=== PATIENT | female | born 1985 | race Caucasian/White ===

== ENCOUNTER 2016-12-02 20:10 | Emergency (ER) | payer OTHER ==
[~2016-12-02] VITALS: Ht 167.6 cm; Wt 83.0 kg
[2016-12-02 20:16] VITALS: Ht 167.6 cm; Wt 83.0 kg
[2016-12-02 21:25] LABS: ADD SCAN DIFF NO
[2016-12-02 21:26] LABS: BASOPHILS % 0.4 % (0.0-2.0); EOSINOPHILS # 0.2 10^3/ul (0.0-0.5); EOSINOPHILS % 1.6 % (0.0-7.0); HEMATOCRIT 38.8 % (37.0-47.0); LYMPHOCYTES # 2.4 10^3/ul (0.8-2.9); LYMPHOCYTES % 21.7 % (15.0-51.0); MEAN CORPUSCULAR HEMOGLOBIN 28.9 pg (29.0-33.0); MEAN CORPUSCULAR HGB CONC 33.5 g/dl (32.0-37.0); MEAN CORPUSCULAR VOLUME 86.2 fl (82.0-101.0); MEAN PLATELET VOLUME 10.3 fl (7.4-10.4); MONOCYTE # 0.8 10^3/ul (0.3-0.9); MONOCYTES % 6.9 % (0.0-11.0); NEUTROPHIL # 7.6 10^3/ul (1.6-7.5); PLATELET COUNT 255 10^3/UL (140-415); RED CELL DISTRIBUTION WIDTH 12.7 % (11.5-14.5); WHITE BLOOD COUNT 10.9 10^3/ul (4.8-10.8)
[2016-12-02 21:35] LABS: ALBUMIN 4.5 g/dl (3.3-4.9)
[2016-12-02 21:35] LABS: URINE COLOR YELLOW (YELLOW)
[2016-12-02 21:36] LABS: POTASSIUM 3.5 mmol/L (3.5-5.1)
[2016-12-02 21:36] LABS: ADD UMIC YES; URINE BILIRUBIN (Dip) NEGATIVE (NEGATIVE); URINE BLOOD (Dip) TRACE (NEGATIVE); URINE GLUCOSE (Dip) NEGATIVE (NEGATIVE); URINE KETONES (Dip) NEGATIVE (NEGATIVE); URINE LEUKOCYTE ESTERASE (Dip) TRACE (NEGATIVE); URINE NITRITE (Dip) NEGATIVE (NEGATIVE); URINE TOTAL PROTEIN (Dip) NEGATIVE (NEGATIVE); URINE UROBILINOGEN (Dip) 0.2 E.U./dL (0.1-1.0)
[2016-12-02 21:38] LABS: BILIRUBIN,INDIRECT 0.2 mg/dl (0-1.1); BILIRUBIN,TOTAL 0.2 mg/dl (0.2-1.3); CREATININE 0.58 mg/dl (0.44-1.00)
[2016-12-02 21:39] LABS: ALBUMIN/GLOBULIN RATIO 1.28; CALCIUM 9.6 mg/dl (8.4-10.2)
[2016-12-02 21:44] LABS: BACTERIA,URINE MODERATE; SQUAMOUS EPITHELIAL CELL,UR FEW; URINE RBCS 0-2 /HPF (0)
--- NOTE | 2016-12-02 22:01 | RADRPT ---
PROCEDURE: US OB. CLINICAL INDICATION: Pelvic pain TECHNIQUE: Transabdominal views of the pelvis are available for review. COMPARISON: No prior studies are available for comparison. FINDINGS: There is a single intrauterine gestation with the crown-rump length measuring 6.7 cm, corresponding to a gestational age of 13 weeks and 0 days. The heart rate is noted at 154 bpm. The ovaries are not visualized. There is no free fluid. RPTAT: AA IMPRESSION: Single live intrauterine with an estimated gestational age of 13 weeks and 0 days, based o n ultrasound measurements. MAME based on ultrasound measurements is 06/09/2017. .Rupert Plata MD, MD Date Time Electronically viewed and signed by .Rupert Plata MD, on 12/02/2016 22:01 .S/
[2016-12-02] MEDS ORDERED: TYL500 PO (22:13)
[2016-12-02] MEDS ORDERED: NITR-58 PO (22:13)
--- NOTE | 2016-12-02 22:21 | ERD ---
ER Documentation Chief Complaint Date/Time DATE: 12/02/16 TIME: 22:17 Chief Complaint lower back pain x 1day, denies vb. states 14 weeks HPI This is a 31-year-old female presents to the ER with right-sided lower back pain that started yesterday. Patient states that her urine is more yellow and she does admit to urinary frequency and dysuria. Patient is currently 14 weeks A0. Patient denies any vaginal bleeding. She denies any pelvic pain or cramping. She denies any vaginal discharge. Patient denies any fevers or chills. She denies any nausea vomiting or diarrhea. Patient denies any trauma. She denies any urine or bowel incontinence, she denies any saddlelike anesthesia. ROS 12 point review of systems was done, all negative except per HPI. Medications Home Meds Active Scripts Acetaminophen* (Tylenol*) 500 Mg Tab, 1000 MG PO Q4H Y for PAIN AND OR ELEVATED TEMP for 3 Days, TAB Prov:LOREN GUILLORY 12/02/16 Nitrofurantoin Monohyd Macrocr* (Macrobid*) 100 Mg Capsr, 100 MG PO BID for 7 Days, CAP Prov:PASTORA,LOREN C 12/02/16 Allergies Allergies: Coded Allergies: No Known Drug Allergies (Verified Allergy, Unknown, 12/02/16) PMhx/Soc Medical and Surgical Hx: pt denies Medical Hx, pt denies Surgical Hx History of Surgery: No Anesthesia Reaction: No Hx Neurological Disorder: No Hx Respiratory Disorders: No Hx Cardiac Disorders: No Hx Psychiatric Problems: No Hx Miscellaneous Medical Probl: No Hx Alcohol Use: No Hx Substance Use: No Hx Tobacco Use: No Smoking Status: Never smoker Physical Exam Vitals Vital Signs Date Time Temp Pulse Resp B/P Pulse Ox O2 Delivery O2 Flow Rate FiO2 12/02/16 20:16 98.6 88 20 132/66 99 Physical Exam GENERAL: The patient is well developed and appropriate for usual state of health , in no apparent distress. HEENT: Atraumatic. CHEST: Clear to auscultation bilaterally. There are no rales, wheezes or rhonchi. HEART: Regular rate and rhythm. No murmurs, clicks, rubs or gallops. ABDOMEN: Soft, nontender and nondistended. Good bowel sounds. No rebound or guarding. No gross peritonitis. No gross organomegaly or masses. No Tao sign or McBurney point tenderness. BACK: No CVA tenderness.. NEURO: Alert and oriented. SKIN:The skin is warm and dry. Result Diagram: 12/02/16211412/02/162114 Results 24 hrs Laboratory Tests Test 12/02/16 21:14 12/02/16 21:15 Urine Color YELLOW Urine Clarity CLEAR Urine pH 6.0 Urine Specific [place] 1.020 Urine Ketones NEGATIVE Urine Nitrite NEGATIVE Urine Bilirubin NEGATIVE Urine Urobilinogen 0.2 E.U./dL Urine Leukocyte Esterase TRACE Urine Microscopic RBC 0-2/HPF Urine Microscopic WBC 0-2/HPF Urine Squamous Epithelial Cells FEW Urine Bacteria MODERATE Urine Hemoglobin TRACE Urine Glucose NEGATIVE% Urine Total Protein NEGATIVE White Blood Count 10.910^3/ul Red Blood Count 4.5010^6/ul Hemoglobin 13.0g/dl Hematocrit 38.8% Mean Corpuscular Volume 86.2fl Mean Corpuscular Hemoglobin 28.9pg Mean Corpuscular Hemoglobin Concent 33.5g/dl Red Cell Distribution Width 12.7% Platelet Count 66626^3/UL Mean Platelet Volume 10.3fl Neutrophils % 69.0% Lymphocytes % 21.7% Monocytes % 6.9% Eosinophils % 1.6% Basophils % 0.4% Nucleated Red Blood Cells % 0.0/100WBC Neutrophils # 7.610^3/ul Lymphocytes # 2.410^3/ul Monocytes # 0.810^3/ul Eosinophils # 0.210^3/ul Basophils # 0.010^3/ul Nucleated Red Blood Cells # 0.010^3/ul Sodium Level 137mmol/L Potassium Level 3.5mmol/L Chloride Level 101mmol/L Carbon Dioxide Level 26mmol/L Anion Gap 14 Blood Urea Nitrogen 8mg/dl Creatinine 0.58mg/dl Glucose Level 80mg/dl Calcium Level 9.6mg/dl Total Bilirubin 0.2mg/dl Direct Bilirubin 0.00mg/dl Indirect Bilirubin 0.2mg/dl Aspartate Amino Transf (AST/SGOT) 27IU/L Alanine Aminotransferase (ALT/SGPT) 35IU/L Alkaline Phosphatase 95IU/L Total Protein 8.0g/dl Albumin 4.5g/dl Globulin 3.50g/dl Albumin/Globulin Ratio 1.28 Procedures/MDM This is a 31-year-old female presents to the ER with right-sided lower back pain. At this time I do not believe the patient has pyelonephritis as she is afebrile extremely well-appearing and does not have any CVA tenderness. Patient only had trace leukocytes on urinalysis. Because patient is symptomatic she will be treated with Macrobid. Patient has denied any urinary bowel incontinence and any saddle like anesthesia. She is also denied any trauma. Patient denied any vaginal bleeding or any other related symptoms, ultrasound of the baby is normal. Patient is to follow-up with her primary care doctor within 1-2 days return to ER sooner if symptoms worsen. My medical decision making was shared with the patient she understands and agrees with plan. Departure Diagnosis: Primary Impression: UTI (urinary tract infection) Condition: Stable Patient Instructions: Understanding Urinary Tract Infections (UTIs) Additional Instructions: Llame al doctor MAANA y sadiq yariel BARNEY PARA DENTRO DE 1-2 HERNANDEZ.Dgale a la secretaria que nosotros le instruimos hacer esta barney.Avise o llame si nevarez condicin se empeora antes de la barney. Regresa aqui si peor o no mejor. LOREN GUILLORY Dec 02, 2016 22:21
[2016-12-02 22:22] VITALS: BP 124/76; PULSE 82; RESP 17; TEMP 98.9
== END 2016-12-02 22:24 | disposition home or self-care (01) ==
LOC: FTE 20:10
DX: O23.41 Unspecified infection of urinary tract in pregnancy, first trimester (principal); Z3A.13 13 weeks gestation of pregnancy
CPT/HCPCS: 76805; 80053; 81001; 81003; 85025

== ENCOUNTER 2017-06-13 10:54 | Outpatient (CLI) | payer OTHER ==
[~2017-06-13] VITALS: Ht 165.1 cm; Wt 96.6 kg
[~2017-06-13 10:54] MED LIST: NITR-58 PO; TYL500 PO
--- NOTE | 2017-06-13 11:36 | RADRPT ---
PROCEDURE: OB ultrasound for biophysical profile CLINICAL INDICATION: Post dates TECHNIQUE: Multiple sonographic images of the pelvis were obtained. Transabdominal views of the g ravid uterus are available for review. The images were reviewed on a PACS workstation. COMPARISON: None FINDINGS: breathing movement = 2/2 tone = 2/2 motion = 2/2 VENKAT = 2/2 VENKAT = 14.8 cm Single live intrauterine with cardiac activity of 137 bpm. position is cephal ic. The placenta is posterior. IMPRESSION: 1. Single live intrauterine gestation. 2. Biophysical profile = 8/8. 3. VENKAT = 14.8 cm. RPTAT: HH .Mary Diamond MD, MD Date Time Electronically viewed and signed by .Mary Diamond MD, on 06/13/2017 11:36 .G/
--- NOTE | 2017-06-13 11:49 | RADRPT ---
PROCEDURE: Obstetrical ultrasound CLINICAL INDICATION: post dates TECHNIQUE: Multiple sonographic images of the pelvis were obtained. The images were reviewed on a PACS workstation. COMPARISON: None FINDINGS: The cervix is not well visualized. There is a single viable intrauterine gestation. Cardiac activity is present with 148 beats per minute. There is a vertex presentation. The placenta is posterior. There is no evidence for an abruption or placenta previa. There is a normal amount of amniotic fluid with an VENKAT = 14.8 cm. Measurements were made in order to determine age. The results are as follows (cm): BPD =9.66 HC =34.65 AC =36.74 FL =7.39 Estimated gestational age by ultrasound of approximately 39 weeks, 4 days. The estimated date of delivery by ultrasound is 06/16/2017. Estimated gestational age by LMP of approximately 40 weeks, 5 days. The estimated date of delivery by LMP was 06/08/2017. EFW = 3921 grams (64th percentile) IMPRESSION: Single viable intrauterine gestation of approximately 39 weeks, 4 days . The estimated date of delivery is 06/16/2017 . Dating by ultrasound is within 8 days of dating by LMP. Cephalic presentation. Normal VENKAT. Estimated weight is 3921 g which is in the 64th percentile. RPTAT: EE Physician Adilson Date Time Electronically viewed and signed by Physician Adilson on 06/13/2017 11:48 RA/
[2017-06-13 11:56] VITALS: Ht 165.1 cm; Wt 96.6 kg
[2017-06-13 11:57] VITALS: BP 125/66; PULSE 93
[2017-06-13] MEDS ORDERED: PNV11TAB PO (11:58)
--- NOTE | 2017-06-13 13:56 | TRIAGE ---
OB Triage Datetime Report Generated by CPN: 06/13/2017 13:55 Datetime: 06/13/2017 12:47 Stage of : OB Triage Datetime: 06/13/2017 12:41 Stage of : OB Triage Datetime: 06/13/2017 12:30 Labor Evaluation Frequency: 0 Monitor Mode: External Resting Tone [place]: Relaxed Heart Rate FHR Baseline Rate: 135 Monitor Mode: External US Variability: Moderate 6-25 bpm Accelerations: 10X10 Decelerations: None Category: Category I Pain Assessment Pain Scale: 0 Pain Presence: None/Denies Pain Type: N/A Pain Goal: 3 Pain Relief Measures: Comfort Measures Datetime: 06/13/2017 11:53 Stage of : OB Triage Assessment Type: Triage EGA: 40.5 Maternal Assessment Level of Consciousness: Fully Conscious DTR's/Clonus: DTRs 2+; No Clonus Headache: Denies Blurred Vision: No Respiratory Effort: Unlabored; Regular Rhythm; Equal Expansion Breath Sounds, Left: Clear and Equal Breath Sounds, Right: Clear and Equal Nausea/Vomiting: Denies RUQ Epigastric Pain: Denies Facial Edema: None Temperature Route: Axillary Fall Risk Assessment History of Falling: (0) No Secondary Diagnosis: (0) No Ambulatory Aid: (0) Bedrest/Nurse Assist IV Therapy: (0) No Gait: (0) Normal/Bedrest/Immobile Mental Status: (0) Oriented to Own Ability Fall Score: 0 Fall Risk Score Definition: No Risk: No action required Labor Evaluation Frequency: X1 Monitor Mode: External Duration (sec)2399: 60 Quality: Mild Pattern: Normal: <= 5 Contractions in 10 Minutes Resting Tone [place]: Relaxed Heart Rate FHR Baseline Rate: 145 Monitor Mode: External US Variability: Moderate 6-25 bpm Accelerations: 10X10 Decelerations: Variable Category: Category II Pain Assessment Pain Scale: 4 Pain Presence: Intermittent Pain Type: Cramping; Contraction Pain Location: Abdomen Pain Goal: 3 Pain Relief Measures: Comfort Measures Datetime: 06/13/2017 11:51 Time of Arrival: 06/13/2017 10:48 Arrived By: Ambulatory Arrived From: Home Chief Complaint: SEEN IN OFFICE LAST TUESDAY, INSTRUCTED TO COME TO TRIAGE TODAY FOR POST DATES, NS T/BPP. DENIES UC'S, LEAKING, OR BLEEDING Movement: Present Contractions: Denies/Absent Rupture of Membranes: Denies Vaginal Bleeding: None Vaginal Discharge: Denies Recent Sexual Intercouse: Denies Abdominal Trauma: Not Applicable Patient Complaints: None Time Provider Notified: 06/13/2017 12:41 Provider Notified: KIANNA Initial Plan: MONITOR, BPP/NST, EFW Datetime: 06/13/2017 11:45 Labor Evaluation Frequency: OCCAS Monitor Mode: External Duration (sec)2399: 50-60 Quality: Mild Resting Tone [place]: Relaxed Heart Rate FHR Baseline Rate: 145 Monitor Mode: External US Variability: Moderate 6-25 bpm Accelerations: 10X10 Decelerations: None Category: Category I Pain Assessment Pain Scale: 0 Pain Presence: None/Denies Pain Type: N/A Pain Goal: 3 Pain Relief Measures: Comfort Measures
--- NOTE | 2017-06-13 18:17 | QN ---
Documentation Comment iup 40 weeks post dates nst no complaints vss nst reactive a/p iup 40 weeks post dates dc home LILA GEORGES MD Jun 13, 2017 18:17
== END 2017-06-13 13:00 | disposition home or self-care (01) ==
LOC: OBT 10:54 → L-D 11:07 → OBT 13:00
PROVIDERS: ATTEND Obstetrics & Gynecology
DX: O48.0 Post-term pregnancy (principal); Z3A.40 40 weeks gestation of pregnancy
CPT/HCPCS: 76815; 76818; Z7500; G0463

== ENCOUNTER 2017-06-15 09:43 | Inpatient (IN) | payer OTHER ==
[~2017-06-15] VITALS: Ht 167.6 cm; Wt 94.1 kg
[~2017-06-15 09:43] MED LIST changes: -NITR-58 PO; +PNV11TAB PO; -TYL500 PO
[2017-06-15 10:16] VITALS: BP 124/75; PULSE 93; RESP 18; Ht 167.6 cm; Wt 94.1 kg
[2017-06-15] MEDS ORDERED: LACTATED RINGER'S 1,000 ML IV SCH (12:30)
[2017-06-15] MEDS ORDERED: ONDANSETRON 4 MG INJ IV STA ×2 (12:42→15:17)
[2017-06-15 12:54] LABS: ABNORMAL IP MESSAGE 1; BASOPHILS % 0.4 % (0.0-2.0); EOSINOPHILS # 0.1 10^3/ul (0.0-0.5); HEMATOCRIT 36.1 % (37.0-47.0); HEMOGLOBIN 12.1 g/dl (12.0-16.0); LYMPHOCYTES % 24.5 % (15.0-51.0); MEAN CORPUSCULAR HEMOGLOBIN 28.3 pg (29.0-33.0); MEAN CORPUSCULAR HGB CONC 33.5 g/dl (32.0-37.0); MEAN CORPUSCULAR VOLUME 84.5 fl (82.0-101.0); MONOCYTE # 0.6 10^3/ul (0.3-0.9); MONOCYTES % 7.8 % (0.0-11.0); NEUTROPHIL # 5.2 10^3/ul (1.6-7.5); NEUTROPHILS % 65.2 % (39.0-77.0); PLATELET COUNT 137 10^3/UL (140-415); RED BLOOD COUNT 4.27 10^6/ul (4.20-5.40); RED CELL DISTRIBUTION WIDTH 14.8 % (11.5-14.5)
[2017-06-15 12:59] LABS: MEAN PLATELET VOLUME 13.3 fl (7.4-10.4); POSITIVE DIFF @See below
[2017-06-15] MEDS ORDERED: CITRIC ACID/NA CITRATE 30 ML CUP PO ONE ×2 (13:00→15:30)
[2017-06-15] MEDS ORDERED: CARBOPROST 250 MCG INJ IM PRN ×2 (13:00→21:00)
[2017-06-15] MEDS ORDERED: CEFAZOLIN 2 GM/50 ML (PMX) 50 ML IV SCH (13:00)
[2017-06-15] MEDS ORDERED: MISOPROSTOL 200 MCG TAB PR PRN ×2 (13:00→21:00)
[2017-06-15] MEDS ORDERED: OXYTOCIN 30 UNITS/LR 500 ML IV PRN ×2 (13:00→21:00)
[2017-06-15] MEDS ORDERED: OXYTOCIN 30 UNITS/LR 500 ML IV SCH (13:00)
[2017-06-15] MEDS ORDERED: METHYLERGONOVINE 0.2 MG INJ IM PRN ×2 (13:00→21:00)
[2017-06-15 13:13] LABS: INR 0.89; PT RATIO 0.9
[2017-06-15 13:14] LABS: PARTIAL THROMBOPLASTIN TIME 26.4 Sec (25.0-35.0)
[2017-06-15] MEDS ORDERED: CEFAZOLIN 1 GM INJ ONE (14:50)
--- NOTE | 2017-06-15 15:10 | RADRPT ---
PROCEDURE: OB ultrasound for biophysical profile CLINICAL INDICATION: Post dates. TECHNIQUE: Multiple sonographic images of the pelvis were obtained. Transabdominal view of the gr avid uterus are available for review. The images were reviewed on a PACS workstation. COMPARISON: 06/13/2017 FINDINGS: breathing movement = 2/2 tone = 2/2 motion = 2/2 Quantitative amniotic fluid volume = 2/2 VENKAT = 11.6 cm Single live intrauterine with cardiac activity at 144 beats per minute. There is a fundal placenta without previa or abruption. IMPRESSION: 1. Single living intrauterine gestation in cephalic position. 2. Biophysical profile = 8/8. 3. VENKAT = 11.6 cm. RPTAT: AACC Physician Isaak Date Time Electronically viewed and signed by Physician Isaak on 06/15/2017 15:10 /
--- NOTE | 2017-06-15 15:13 | RADRPT ---
PROCEDURE: US OB. CLINICAL INDICATION: Post dates TECHNIQUE: Multiple sonographic images of the pelvis were obtained. Transabdominal imaging only w as performed. The images were reviewed on a PACS workstation. COMPARISON: 06/13/2017 FINDINGS: There is a single living intrauterine gestation in cephalic position. There is an fundal placenta. There is no evidence of previa. Adequate amnionic fluid is demonstrated. The amniotic fluid index is 11.6 cm. Active cardiac motion is seen at 144 beats per minute. The biparietal diameter is 9.77. The head circumference is 33.53. The abdominal circumference is 34.49. The femur length is 7.43. Consistent with: 38 weeks 5 days Estimated weight in the 3513 plus or minus 527 g. IMPRESSION: 1. Single living intrauterine gestation in cephalic position with a mean gestational age by ultraso und of 38 weeks 5 days plus or minus 19 days with estimated date of delivery of 06/24/2017 by ultras ound criteria. RPTAT: AACC Physician Isaak Date Time Electronically viewed and signed by Physician Isaak on 06/15/2017 15:13 /
[2017-06-15] MEDS: LACTATED RINGER'S 1,000 ML IV SCH ×2 (15:27→20:38)
[2017-06-15] MEDS ORDERED: OXYTOCIN 10 UNIT INJ ONE (16:01)
[2017-06-15] MEDS ORDERED: PHENYLephrine (100 MCG/ML) 5ML SYG ONE (16:01)
[2017-06-15] MEDS ORDERED: morphine SULFATE/PF (10 MG/10 ML) INJ ONE (16:01)
[2017-06-15] MEDS ORDERED: FENTAnyl 50 MCG/ML VIAL ONE (16:01)
[2017-06-15] MEDS ORDERED: METOCLOPRAMIDE 10 MG INJ ONE (16:01)
--- NOTE | 2017-06-15 16:18 | HP ---
Date/Time of Note Date/Time of Note DATE: 06/15/17 TIME: 16:11 OB - History Hx of Present Free Text/Dictation 32 years old EDC June 08, 2017 admitted at 41 weeks of for induction of labor after admission plan of induction of labor discussed with the patient patient requesting elective section declined trial of induction in labor complication of the section versus vaginal delivery was discussed with the patient all her question answered she still would like to have delivery Chief Complaint: 41 weeks of admitted for induction of labor Estimated Due Date: Jun 08, 2017 : 1 Para: 0 Care: Good Care Ultrasounds: Normal mid trimester US Obstetrical Complications: None Medical Complications: None Past Family/Social History * Past Medical, Surgical, Family and Obstetric Histories reviewed from chart. Rubella: immune RPR/VDRL: Negative GBS Status: Negative HBsAG: Negative OB Admission Exam Vital Signs Vital Signs Vital Signs Date Time Temp Pulse Resp B/P Pulse Ox O2 Delivery O2 Flow Rate FiO2 06/15/17 10:16 99.1 93 18 124/75 98 Room Air Physical Exam HEENT: WNL Heart: Rhythm Normal Lungs: Clear, Equal Abdomen: WNL Extremities: Normal Reflexes: Normal Cervical Dilatation: 1cm Effacement: 75% Station: -3 Membranes: Intact Accelerations: Accelerations Present Decelerations: No Decelerations Varibility: Moderate Contractions on Admission: >10 Minutes Apart Intensity: Mild Last 72 hours Lab Results CBC & BMP 06/15/17 10:30 OB Assessment/Plan Reason for admission: other (41 week declined induction and trial of labor requesting delivery) Other plan: 32 years old 41 weeks admitted for induction of labor patient declined induction and trial of labor requesting delivery risks and complication of has been discussed with the patient including the complication such as but not limited to bowel bladder injury infection hemorrhage and wound hematoma and she would like to proceed with the elective section DIGNA HUTCHISON MD Jun 15, 2017 16:18
[2017-06-15] MEDS ORDERED: FENTAnyl 50 MCG/ML VIAL IV PRN ×3 (16:30)
[2017-06-15] MEDS ORDERED: NALBUPHINE HCL (10 MG/1 ML) INJ IV PRN (16:30)
[2017-06-15] MEDS ORDERED: ONDANSETRON 4 MG INJ IV PRN ×2 (16:30)
[2017-06-15] MEDS ORDERED: ALBUTEROL 0.083% (NEB) 2.5 MG/3 ML AMP HHN PRN (16:30)
[2017-06-15] MEDS ORDERED: DIPHENHYDRAMINE 50 MG INJ IV PRN ×2 (16:30)
[2017-06-15] MEDS ORDERED: TRIMETHOBENZAMIDE 100 MG/ML VIAL IM PRN ×2 (16:30)
[2017-06-15] MEDS ORDERED: hydrALAzine 20 MG INJ IV PRN (16:30)
[2017-06-15] MEDS ORDERED: IPRATROPIUM (NEB) 0.5 MG/2.5 ML AMP HHN PRN (16:30)
[2017-06-15] MEDS ORDERED: NALOXONE (0.4 MG/ML) INJ IV PRN (16:30)
[2017-06-15] MEDS ORDERED: morphine 2 MG INJ IV PRN (16:30)
[2017-06-15] MEDS ORDERED: OXYCODONE/ACETAMINOPHEN (5/325) TAB PO PRN ×4 (16:30→21:00)
[2017-06-15] MEDS ORDERED: MEPERIDINE 25 MG INJ IV PRN (16:30)
[2017-06-15] MEDS ORDERED: EPHEDrine SULFATE 50 MG/5 ML SYG IV PRN (16:30)
[2017-06-15] MEDS ORDERED: morphine 4 MG/ML VIAL IV PRN (16:30)
[2017-06-15] MEDS ORDERED: LABETALOL HCL 20MG INJ IV PRN (16:30)
[2017-06-15] MEDS ORDERED: HYDROmorphONE (0.2 MG/ML) 10ML SYG IV PRN ×3 (16:30)
--- NOTE | 2017-06-15 17:20 | OPR ---
Operative Report Planned Procedure Free Text/Dictation 32 years old 41 weeks EDC June 08, 2017 [facility] induction of labor, patient declined induction and trial of labor requested elective section Procedure date Jun 15, 2017 Procedure(s) Primary Performed by see signature line Assisting provider: ANGEL COLLIER MD Anesthesiologist: Burke Mcclain M.D. Pre-procedure diagnosis Term 41 week admitted for induction of labor, patient declined induction requested elective section Anesthesia Type: spinal Procedure Description Under satisfactory [] anesthesia, the patient was prepped and draped and placed in a supine position, tilted to the left. Pfannenstiel incision was made, carried through the subcutaneous tissue. Bleeders brought under control with electrocautery. Fascia incised to the length of the incision. Rectus muscles from the fascia, divided midline. Peritoneum exposed, entered through a transverse incision. Exploration of abdomen revealed gravid uterus. Bladder flap was developed. Transverse incision was made in the lower segment of the uterus. Amniotic sac ruptured. [] amniotic fluid noted. [] Nasal oropharyngeal suction was performed. The baby was handed to the team for immediate attention. The placenta was delivered manually intact. Uterine cavity was cleaned with wet sponge and drainage established. Uterus closed in 2 layers using [] in continuous fashion. Peritoneal cavity irrigated with warm saline. Sponge, needle and instrument count reported to be correct. Abdominal peritoneum closed with [] continuously. Rectus muscle approximated with []. Fascia closed with [], and skin closed with heidi. Estimated blood loss []mL. Urine bag contained []mL of urine Post-Procedure Findings: Live baby boy 9 and 9 nuchal cord 1 Estimated blood loss: other (600 cc) Specimen(s): no Grafts/Implants: no Complication(s): no Pt Condition post procedure: stable Physician Certification I, the undersigned physician, hereby certify that I have discussed the procedure described in this consent form with this patient (or the patient's legal senior customer service representative), including: * The risk and benefits of the procedure; * Any adverse reactions that may reasonably be expected to occur; * Any alternative efficacious methods of treatment which may be medically viable ; * The potential problems that may occur during recuperation; * Potential for blood transfusion and associated risks/benefits; and * Any research or economic interest I may have regarding this treatment. I further certify that the patient/legally responsible person was encouraged to ask question and that all questions were answered. DIGNA HUTCHISON MD Jun 15, 2017 17:20
[2017-06-15 20:40] VITALS: BP 131/83; PULSE 80; RESP 16
[2017-06-15] MEDS ORDERED: HYDROCODONE/APAP (5/325) TAB PO PRN (21:00)
[2017-06-15] MEDS: SENNA/DOCUSATE NA (8.6MG/50MG) TAB PO SCH (21:00)
[2017-06-15] MEDS ORDERED: CEFAZOLIN 1 GM/50 ML (PMX) 50 ML IVPB SCH (21:00)
[2017-06-15] MEDS ORDERED: LANOLIN 7 GM TUBE TOP PRN (21:00)
[2017-06-15] MEDS: OXYTOCIN 30 UNITS/LR 500 ML IV SCH (21:56)
[2017-06-16 00:30] VITALS: BP 123/77; PULSE 81; RESP 17
[2017-06-16] MEDS: OXYTOCIN 30 UNITS/LR 500 ML IV SCH ×6 (02:56→20:58)
[2017-06-16 04:30] VITALS: BP 119/71; PULSE 79; RESP 16
[2017-06-16] MEDS: LACTATED RINGER'S 1,000 ML IV SCH ×3 (04:38→20:38)
[2017-06-16] MEDS: IBUPROFEN 600 MG TAB PO SCH ×4 (05:03→23:56)
[2017-06-16 08:00] VITALS: BP 119/77; PULSE 84; RESP 18
[2017-06-16] MEDS: SENNA/DOCUSATE NA (8.6MG/50MG) TAB PO SCH ×2 (08:40→21:43)
[2017-06-16] MEDS: KETOROLAC 30 MG INJ IV PRN ×2 (08:40→15:05)
[2017-06-16 10:55] LABS: BASOPHILS % 0.2 % (0.0-2.0); EOSINOPHILS % 0.5 % (0.0-7.0); HEMATOCRIT 31.2 % (37.0-47.0); HEMOGLOBIN 10.3 g/dl (12.0-16.0); LYMPHOCYTES # 1.2 10^3/ul (0.8-2.9); LYMPHOCYTES % 14.2 % (15.0-51.0); MEAN CORPUSCULAR HEMOGLOBIN 28.1 pg (29.0-33.0); MEAN CORPUSCULAR VOLUME 85.2 fl (82.0-101.0); MEAN PLATELET VOLUME 12.6 fl (7.4-10.4); MONOCYTE # 0.6 10^3/ul (0.3-0.9); MONOCYTES % 6.9 % (0.0-11.0); NEUTROPHIL # 6.4 10^3/ul (1.6-7.5); NEUTROPHILS % 77.7 % (39.0-77.0); PLATELET COUNT 115 10^3/UL (140-415); RED BLOOD COUNT 3.66 10^6/ul (4.20-5.40); RED CELL DISTRIBUTION WIDTH 14.9 % (11.5-14.5); WHITE BLOOD COUNT 8.2 10^3/ul (4.8-10.8)
--- NOTE | 2017-06-16 11:23 | QN ---
Documentation Comment Post day 1 Afebrile Vital signs are stable Abdomen soft, bowel sounds present, able to pass flatus, and dry Extremities normal Ambulation encouraged , DIGNA HUTCHISON MD Jun 16, 2017 11:23
[2017-06-16 12:29] VITALS: PULSE 80; RESP 20
[2017-06-16 16:00] VITALS: BP 113/70; PULSE 80; RESP 20
[2017-06-16] MEDS: HYDROCODONE/APAP (5/325) TAB PO PRN (19:50)
[2017-06-16 20:00] VITALS: BP 124/64; PULSE 94; RESP 16
[2017-06-17] MEDS: HYDROCODONE/APAP (5/325) TAB PO PRN (00:42)
[2017-06-17] MEDS: OXYTOCIN 30 UNITS/LR 500 ML IV SCH (00:58)
[2017-06-17 04:45] VITALS: BP 114/68; PULSE 88; RESP 17
[2017-06-17] MEDS: IBUPROFEN 600 MG TAB PO SCH ×4 (05:50→23:44)
[2017-06-17 08:00] VITALS: BP 108/65; PULSE 76; RESP 20
[2017-06-17] MEDS: SENNA/DOCUSATE NA (8.6MG/50MG) TAB PO SCH ×2 (09:10→22:19)
--- NOTE | 2017-06-17 10:12 | QN ---
Documentation Comment Post day 2 Afebrile Vital signs are stable Abdomen soft, incision dry, bowel sounds present, no bowel movement, Extremity normal Ambulation encouraged DIGNA HUTCHISON MD Jun 17, 2017 10:12
--- NOTE | 2017-06-17 10:20 | QN ---
Documentation Comment Patient is complaining of redness of both legs from knee down it seems like an allergic reaction recommended apply Benadryl cream. DIGNA HUTCHISON MD Jun 17, 2017 10:20
[2017-06-17] MEDS ORDERED: NA PHOSPHATE/BIPHOS 133 ML ENEMA PR ONE (10:30)
[2017-06-17] MEDS: DIPHENHYDRAMINE 2%/ZINC 28.4 GM CR TOP SCH ×2 (15:43→22:19)
[2017-06-17 16:28] VITALS: BP 115/64; PULSE 83; RESP 20
[2017-06-17 19:50] VITALS: BP 111/61; PULSE 90; RESP 20
[2017-06-18 04:00] VITALS: BP 115/72; PULSE 88; RESP 18
[2017-06-18] MEDS: IBUPROFEN 600 MG TAB PO SCH ×2 (05:32→12:52)
[2017-06-18] MEDS: DIPHENHYDRAMINE 2%/ZINC 28.4 GM CR TOP SCH (05:32)
[2017-06-18] MEDS: SENNA/DOCUSATE NA (8.6MG/50MG) TAB PO SCH (08:35)
[2017-06-18 08:40] VITALS: BP 115/73; PULSE 74; RESP 17
[2017-06-18] MEDS ORDERED: DIPHTH/TET/ACEL PERTUSS (ADULT) 0.5 ML VIAL IM* ONE (09:00)
[2017-06-18] MEDS ORDERED: NA PHOSPHATE/BIPHOS 133 ML ENEMA PR SCH (09:00)
--- NOTE | 2017-06-18 12:22 | PD.PPDC ---
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
--- NOTE | 2017-06-18 12:25 | DS ---
Date/Time of Note Date/Time of Note DATE: 06/18/17 TIME: 12:23 Discharge Summary Admission/Discharge Info Admit Date/Time Jun 15, 2017 at 12:30 Discharge Date/Time 2016 at 1220 Discharge Diagnosis Post day 3 Patient Condition: Good Procedures Primary Hx of Present Illness Term patient declined trial of labor requested elective section underwent primary Hospital Course Satisfactory uneventful Home Meds Reported Medications [id number] ( 19) 1 Each Tablet, 1 TAB PO DAILY, TAB 06/13/17 Discontinued Scripts Acetaminophen* (Tylenol*) 500 Mg Tab, 1000 MG PO Q4H Y for PAIN AND OR ELEVATED TEMP for 3 Days, TAB Prov:LOREN GUILLORY 12/02/16 Nitrofurantoin Monohyd Macrocr* (Macrobid*) 100 Mg Capsr, 100 MG PO BID for 7 Days, CAP Prov:LOREN GUILLORY 12/02/16 Follow-up Plan Post instructions given recommended to make appointment to be seen at the office in 1 week Primary Care Provider Care Physician No Primary Time spent on discharge: < 30 minutes DIGNA HUTCHISON MD Jun 18, 2017 12:25
== END 2017-06-18 16:08 | disposition home or self-care (01) | DRG 766 ==
LOC: OBT 09:43 → L-D 09:43 → OBT 13:08 → L-D 15:51 → PP1 20:06
PROVIDERS: ADMIT Obstetrics & Gynecology; ATTEND Obstetrics & Gynecology
PROC: 3E0P3VZ Introduction of Hormone into Female Reproductive, Percutaneous Approach (ICD-10-PCS; 2017-06-15)
PROC: 10D00Z1 Extraction of Products of Conception, Low, Open Approach (ICD-10-PCS; principal; 2017-06-15 15:00)
DX: O48.0 Post-term pregnancy (principal); Z37.0 Single live birth; Z3A.41 41 weeks gestation of pregnancy
CPT/HCPCS: 36415; 76815; 76818; 85025; 85610; 85730; 86592; 86850; 86900; 86901; 87340; 90715; 94760; 99464; G0463; J0690; J1885; J2274; J2370; J2405; J2590; J2765; J3010; J7120